=== PATIENT | male | born 1990 | race Caucasian/White ===

== ENCOUNTER 2018-11-04 16:21 | Inpatient (IN) ==
[2018-11-04] MEDS ORDERED: PHENERGAN INJ 25 MG IM PRN (17:23)
[2018-11-04] MEDS ORDERED: ATIVAN TAB 0.5 MG PO PRN (17:23)
[2018-11-04 17:48] LABS: BASOPHILS % (AUTO) 0.5 % (0.2-1.0); EOSINOPHILS # (AUTO) 0.1 x10^3/uL (0.0-0.2); EOSINOPHILS % (AUTO) 3.1 % (0.9-2.9); HEMATOCRIT 35.4 % (42.0-54.0); HEMOGLOBIN 12.4 g/dL (13.5-18.0); LYMPHOCYTES # (AUTO) 1.1 X10^3/uL (1.3-2.9); MEAN CORPUSCULAR HEMOGLOBIN 28.1 pg (27.0-34.0); MEAN CORPUSCULAR HGB CONC 34.9 g/dL (33.0-35.0); MEAN CORPUSCULAR VOLUME 80.6 fL (80.0-100.0); MEAN PLATELET VOLUME 9.1 fL (7.4-11.0); MONOCYTES # (AUTO) 0.6 x10^3/uL (0.3-0.8); MONOCYTES % (AUTO) 13.2 % (0.0-13.0); NEUTROPHILS # (AUTO) 2.3 x10^3/uL (2.2-4.8); NEUTROPHILS % (AUTO) 56.2 % (42.0-75.0); PLATELET COUNT 166 X10^3/uL (150.0-450.0); RED CELL DISTRIBUTION WIDTH 13.8 % (11.6-16.5); WHITE BLOOD COUNT 4.2 X10^3/uL (3.6-10.0)
[2018-11-04 18:01] LABS: ALANINE AMINOTRANSFERASE 37 Units/L (12-78); ALBUMIN 3.1 g/dL (3.4-5.0); ALKALINE PHOSPHATASE 61 Units/L (46-116); ASPARTATE AMINO TRANSFERASE 24 Units/L (15-37); BLOOD UREA NITROGEN 12 mg/dL (7-18); CALCIUM 8.3 mg/dL (8.5-10.1); CARBON DIOXIDE 26.5 mmol/L (21-32); CHLORIDE 99 mmol/L (98-107); CREATININE 1.18 mg/dL (0.70-1.30); SODIUM 134 mmol/L (136-145); eGFR NON BLACK RACES > 60 (>60)
[2018-11-04 18:31] LABS: ERYTHROCYTE SEDIMENTATION RATE 63 MM/HOUR (0-15)
[2018-11-04] MEDS: TYLENOL 325 MG TAB PO PRN (18:38)
[2018-11-04] MEDS: PEPCID 20 MG IV PREMIX* 20 MG/50 ML BAG IV SCH ×2 (18:39→21:31)
[2018-11-04] MEDS: PROTONIX INJ 40 MG VIAL IVP SCH ×2 (18:39→21:31)
[2018-11-04] MEDS: NS 1000 ML 1,000 ML IV SCH (18:39)
[2018-11-04] MEDS: FLAGYL IV PREMIX 500 MG BAG 500 MG/100 ML BAG IV SCH (18:39)
[2018-11-04 18:57] LABS: CRYPTOSPORIDIUM PARVUM ANTIGEN NEGATIVE (NEGATIVE); GIARDIA LAMBLIA ANTIGEN NEGATIVE (NEGATIVE)
[2018-11-04] MEDS: CIPRO IV 400 MG PREMIX* 400 MG/200 ML IV.SOLN. IV SCH ×3 (21:27→21:31)
[2018-11-04 21:40] LABS: BILIRUBIN,URINE NEGATIVE (NEGATIVE); BLOOD/HEMOGLOBIN,URINE 1+ (NEGATIVE); GLUCOSE, URINE NEGATIVE (NEGATIVE); KETONES,URINE 2+ (NEGATIVE); LEUKOCYTE ESTERASE ,URINE NEGATIVE (NEGATIVE); NITRITES,URINE NEGATIVE (NEGATIVE); PH,URINE 6.5 (5.0 - 8.0); PROTEIN,URINE 1+ (NEGATIVE); UROBILINOGEN,URINE NORMAL (NORMAL)
[2018-11-04 21:44] LABS: APPEARANCE,URINE CLEAR (CLEAR); BACTERIA,URINE NEGATIVE /HPF (NEGATIVE); COLOR,URINE YELLOW (YELLOW); RBC,URINE 0-2 /HPF (0-3); SQUAMOUS EPITHELIAL CELL,UR NEGATIVE /HPF (NEGATIVE)
[2018-11-04] MEDS: DEMEROL INJ IVP PRN (22:09)
[2018-11-05] MEDS: TYLENOL 325 MG TAB PO PRN ×4 (01:09→23:30)
[2018-11-05] MEDS: NS 1000 ML 1,000 ML IV SCH ×4 (02:16→18:22)
[2018-11-05] MEDS: FLAGYL IV PREMIX 500 MG BAG 500 MG/100 ML BAG IV SCH ×3 (02:26→18:22)
[2018-11-05] MEDS: DEMEROL INJ IVP PRN (04:30)
[2018-11-05 06:39] LABS: BASOPHILS % (AUTO) 0.7 % (0.2-1.0); EOSINOPHILS # (AUTO) 0.1 x10^3/uL (0.0-0.2); HEMATOCRIT 35.4 % (42.0-54.0); HEMOGLOBIN 12.1 g/dL (13.5-18.0); LYMPHOCYTES # (AUTO) 1.1 X10^3/uL (1.3-2.9); LYMPHOCYTES % (AUTO) 28.1 % (21.0-51.0); MEAN CORPUSCULAR HGB CONC 34.2 g/dL (33.0-35.0); MEAN CORPUSCULAR VOLUME 81.7 fL (80.0-100.0); MEAN PLATELET VOLUME 9.4 fL (7.4-11.0); MONOCYTES # (AUTO) 0.6 x10^3/uL (0.3-0.8); MONOCYTES % (AUTO) 15.1 % (0.0-13.0); NEUTROPHILS % (AUTO) 54.1 % (42.0-75.0); PLATELET COUNT 157 X10^3/uL (150.0-450.0); RED BLOOD COUNT 4.33 X10^6/uL (4.7-6.0); RED CELL DISTRIBUTION WIDTH 13.7 % (11.6-16.5); WHITE BLOOD COUNT 3.7 X10^3/uL (3.6-10.0)
[2018-11-05 06:51] LABS: ALANINE AMINOTRANSFERASE 33 Units/L (12-78); ALBUMIN 2.9 g/dL (3.4-5.0); ALKALINE PHOSPHATASE 58 Units/L (46-116); ASPARTATE AMINO TRANSFERASE 22 Units/L (15-37); BLOOD UREA NITROGEN 10 mg/dL (7-18); CALCIUM 8.3 mg/dL (8.5-10.1); CARBON DIOXIDE 24.8 mmol/L (21-32); CHLORIDE 102 mmol/L (98-107); COR CA(FOR HYPOALB) 9.2 mg/dL (8.5-10.1); CREATININE 1.17 mg/dL (0.70-1.30); SODIUM 139 mmol/L (136-145); TOTAL PROTEIN 6.6 g/dL (6.4-8.2); eGFR NON BLACK RACES > 60 (>60)
[2018-11-05 07:32] LABS: ERYTHROCYTE SEDIMENTATION RATE 36 MM/HOUR (0-15)
[2018-11-05 07:45] VITALS: BMI 24.7
[2018-11-05] MEDS: CIPRO IV 400 MG PREMIX* 400 MG/200 ML IV.SOLN. IV SCH ×2 (08:12→21:50)
[2018-11-05] MEDS: PROTONIX INJ 40 MG VIAL IVP SCH ×2 (08:12→21:48)
[2018-11-05] MEDS: PEPCID 20 MG IV PREMIX* 20 MG/50 ML BAG IV SCH ×2 (08:16→21:50)
[2018-11-05] MEDS ORDERED: POTASSIUM CHL 40 MEQ/NS 0.45% 500 ML IV PRN (10:34)
[2018-11-05] MEDS ORDERED: KLOR-CON PO PRN (10:34)
[2018-11-05] MEDS ORDERED: K-RIDER 10 MEQ/NS 100 ML 10 MEQ/100 ML BAG IV PRN (10:34)
[2018-11-05] MEDS ORDERED: POTASSIUM CHLORIDE LIQ 20 MEQ UDC PO PRN (10:34)
[2018-11-05] MEDS ORDERED: MICRO K EXTEN CAP 10 MEQ PO PRN (10:34)
[2018-11-05] MEDS ORDERED: K-DUR TAB 20 MEQ PO PRN (10:34)
[2018-11-05] MEDS ORDERED: POTASSIUM CHL 60 MEQ/NS 0.45% 500 ML IV PRN (10:34)
[2018-11-05] MEDS: MAGNESIUM SULFATE 1 GRAM/100 mL PREMIX 1 GM/100 ML BAG IV PRN ×2 (11:58→13:00)
--- NOTE | 2018-11-05 15:27 | DR.CONSULT ---
Consult - Consultation for Day of: Date: 11/05/18 - Chief Complaint Chief Complaint: Patient referred for abdominal pain and colitis. Patinet with complaints of Crampy lower abdominal pain, diarrhea and hematochezia. - History of Present Illness History of Present Illness: Patient is a 28 yo male who was referred for abdominal pain and colitis. Patient with complaints of Crampy lower abdominal pain, diarrhea for 4-5 days and hematochezia on sunday. Patient denies dysphagia, dyspepsia, nausea, vomiting, constipation and melena. Patient states he has never had a colon or EGD. Stool hemoccult positvie and stool positive ofr campylobacter. Hgb 12.1, Hct 35.4. Abdomen and pelvis CT showed question mild transmural thickening in the decending and igmoid colon which could be due to early infectious coliti or inflammatory colitis. - Family History Family Medical History: Diabetes Mellitus, Cancer, [place], Hypertension - Social History Does patient currently use any type of tobacco product: No Have you used tobacco products in the last 12 months: No Alcohol Use: Rarely Drug Use: None - Medications Home Medications: ceftriaxone [From Rocephin] Allergy (Severe, Verified 11/04/18 17:57) CONTINUE taking the following medications amoxicillin 500 mg PO BID 11/04/18 [History] fluoxetine [Prozac] 20 mg PO DAILY 11/04/18 [History] - Review of Systems Gastrointestinal: Abdominal Pain (lower abd cramps), Diarrhea, Hematochezia - Physical Exam Vital Signs: Temperature 98.9 F Pulse Rate [Left Brachial] 76 Respiratory Rate 18 Blood Pressure [Left Arm] 128/58 O2 Sat by Pulse Oximetry 98 Oriented: Normal Eyes: Normal Ear: Normal Nose: Normal Throat: Normal Respiratory: Clear Throughout Cardiovascular: Normal : Normal Auscultation: Bowel Sounds: Normal Palpation: Normal, Other (no distention). negative: Spleen Enlarged, Liver Enlarged, Mass Pulsatile Tenderness: Normal Skin: Normal Musculoskeletal: Normal Psychiatric: Normal Mood Description: Calm Affect: Normal Speech Pattern: Clear, Appropriate - Plan Plan: Assessment. 1. colitis likely secondary to campylobacter. Plan. 1. Low residue diet, cont antibiotics. Plan reviewed with Dr. Adams - Allergies Allergies/Adverse Reactions: Allergies Allergy/AdvReac Type Severity Reaction Status Date / Time ceftriaxone [From Rocephin] Allergy Severe Verified 11/04/18 17:57
[2018-11-05] MEDS: BENADRYL CAP/TAB 25 MG PO PRN (21:47)
[2018-11-06] MEDS: NS 1000 ML 1,000 ML IV SCH ×4 (02:43→17:32)
[2018-11-06] MEDS: FLAGYL IV PREMIX 500 MG BAG 500 MG/100 ML BAG IV SCH ×3 (02:43→19:30)
[2018-11-06] MEDS: BENADRYL CAP/TAB 25 MG PO PRN (04:13)
[2018-11-06 06:15] LABS: BASOPHILS % (AUTO) 0.5 % (0.2-1.0); EOSINOPHILS # (AUTO) 0.1 x10^3/uL (0.0-0.2); EOSINOPHILS % (AUTO) 3.4 % (0.9-2.9); HEMATOCRIT 34.7 % (42.0-54.0); HEMOGLOBIN 12.1 g/dL (13.5-18.0); LYMPHOCYTES # (AUTO) 1.1 X10^3/uL (1.3-2.9); LYMPHOCYTES % (AUTO) 30.3 % (21.0-51.0); MEAN CORPUSCULAR HEMOGLOBIN 28.1 pg (27.0-34.0); MEAN CORPUSCULAR HGB CONC 34.8 g/dL (33.0-35.0); MEAN CORPUSCULAR VOLUME 80.6 fL (80.0-100.0); MEAN PLATELET VOLUME 8.9 fL (7.4-11.0); MONOCYTES # (AUTO) 0.6 x10^3/uL (0.3-0.8); NEUTROPHILS # (AUTO) 1.8 x10^3/uL (2.2-4.8); NEUTROPHILS % (AUTO) 48.8 % (42.0-75.0); PLATELET COUNT 189 X10^3/uL (150.0-450.0); RED BLOOD COUNT 4.31 X10^6/uL (4.7-6.0); RED CELL DISTRIBUTION WIDTH 13.7 % (11.6-16.5); WHITE BLOOD COUNT 3.6 X10^3/uL (3.6-10.0)
[2018-11-06 06:51] LABS: ALANINE AMINOTRANSFERASE 49 Units/L (12-78); ALBUMIN 2.8 g/dL (3.4-5.0); ALKALINE PHOSPHATASE 78 Units/L (46-116); ASPARTATE AMINO TRANSFERASE 43 Units/L (15-37); BLOOD UREA NITROGEN 7 mg/dL (7-18); CARBON DIOXIDE 25.9 mmol/L (21-32); CHLORIDE 106 mmol/L (98-107); CREATININE 1.02 mg/dL (0.70-1.30); MAGNESIUM 2.2 mg/dL (1.7-2.9); SODIUM 141 mmol/L (136-145); TOTAL PROTEIN 6.6 g/dL (6.4-8.2); eGFR NON BLACK RACES > 60 (>60)
[2018-11-06] MEDS: TYLENOL 325 MG TAB PO PRN ×2 (09:35→20:15)
[2018-11-06] MEDS: PEPCID 20 MG IV PREMIX* 20 MG/50 ML BAG IV SCH ×2 (09:36→21:45)
[2018-11-06] MEDS: CIPRO IV 400 MG PREMIX* 400 MG/200 ML IV.SOLN. IV SCH ×2 (09:36→21:45)
[2018-11-06] MEDS: PROTONIX INJ 40 MG VIAL IVP SCH ×2 (09:37→21:46)
[2018-11-06] MEDS ORDERED: RESTORIL CAP 15 MG PO PRN (20:38)
--- NOTE | 2018-11-06 22:01 | DR.UPDATE ---
H&P Update History and Physical Update: History and Physical reviewed and patient examined. Changes noted: Yes with the following: WAS SEEN IN THE OFFICE FOR COMPLAINTS OF ABDOMINAL PAIN, NAUSEA, DIARRHEA, AND FEVER. AN OUTPATIENT ABDOMEN/PELVIS CT WAS OBTAINED AND REVEALED: QUESTIONABLE MILD TRANSMORAL THICKENING IN THE DESCENDING AND SIGMOID COLON WHICH COULD BE SPURIOUS AND DUE TO NONDISTENTION OR COULD BE RELATED TO EARLY INFECTION OR INFLAMMATORY COLITIS. HE WAS ADMITTED TO THE HOSPITAL FOR FURTHER EVALUATION AND TREATMENT. ON ADMISSION, WE WILL OBTAIN LABS AND STOOL STUDIES. WE WILL START IV FLAGYL, IV CIPRO, NORMAL SALINE AT 125ML/HR, PHENERGAN IM, DEMEROL IV PRN, PEPCID IV, AND PROTONIX IV. OTHERWISE, WE WILL FOLLOW UP WITH AM LABS AND CONTINUE TO MONITOR.
[2018-11-07] MEDS ORDERED: NS 100 ML IV 100 ML IV ONE (01:13)
[2018-11-07] MEDS: NS 1000 ML 1,000 ML IV SCH ×2 (01:52→09:52)
[2018-11-07] MEDS: FLAGYL IV PREMIX 500 MG BAG 500 MG/100 ML BAG IV SCH ×2 (03:11→10:48)
[2018-11-07 05:40] LABS: BASOPHILS % (AUTO) 0.5 % (0.2-1.0); EOSINOPHILS # (AUTO) 0.2 x10^3/uL (0.0-0.2); EOSINOPHILS % (AUTO) 4.6 % (0.9-2.9); HEMATOCRIT 35.5 % (42.0-54.0); HEMOGLOBIN 12.3 g/dL (13.5-18.0); LYMPHOCYTES # (AUTO) 1.4 X10^3/uL (1.3-2.9); LYMPHOCYTES % (AUTO) 28.5 % (21.0-51.0); MEAN CORPUSCULAR HEMOGLOBIN 27.9 pg (27.0-34.0); MEAN CORPUSCULAR HGB CONC 34.6 g/dL (33.0-35.0); MEAN CORPUSCULAR VOLUME 80.7 fL (80.0-100.0); MEAN PLATELET VOLUME 8.5 fL (7.4-11.0); MONOCYTES # (AUTO) 0.7 x10^3/uL (0.3-0.8); MONOCYTES % (AUTO) 14.3 % (0.0-13.0); NEUTROPHILS # (AUTO) 2.6 x10^3/uL (2.2-4.8); NEUTROPHILS % (AUTO) 52.1 % (42.0-75.0); PLATELET COUNT 219 X10^3/uL (150.0-450.0); RED BLOOD COUNT 4.39 X10^6/uL (4.7-6.0); RED CELL DISTRIBUTION WIDTH 13.7 % (11.6-16.5); WHITE BLOOD COUNT 5.1 X10^3/uL (3.6-10.0)
[2018-11-07 05:46] LABS: ALANINE AMINOTRANSFERASE 88 Units/L (12-78); ALKALINE PHOSPHATASE 85 Units/L (46-116); ASPARTATE AMINO TRANSFERASE 82 Units/L (15-37); BLOOD UREA NITROGEN 7 mg/dL (7-18); CALCIUM 8.1 mg/dL (8.5-10.1); CARBON DIOXIDE 25.5 mmol/L (21-32); CHLORIDE 105 mmol/L (98-107); COR CA(FOR HYPOALB) 8.9 mg/dL (8.5-10.1); COR NA(FOR HYPERGLY) 139 mmol/L (136-145); CREATININE 0.99 mg/dL (0.70-1.30); SODIUM 139 mmol/L (136-145); TOTAL PROTEIN 6.9 g/dL (6.4-8.2); eGFR NON BLACK RACES > 60 (>60)
--- NOTE | 2018-11-07 07:14 | CT ---
HISTORY: Abdominal pain Study: CT abdomen pelvis with contrast Comparison: None Technique: Axial post-contrast images with coronal and sagittal reformats. Dose reduction procedures were used with mA/kv adjusted for body size. Findings: The lung bases are clear. The liver, spleen, adrenal glands, and pancreas are within normal limits. No opaque stones are visible within the gallbladder. The kidneys are unobstructed and without stones or masses. No ureteral calculi are identified. The abdominal aorta is normal. No intraperitoneal or retroperitoneal lymphadenopathy of significance is identified. The appendix is normal. There are no findings suggestive of enteritis, colitis, or diverticulitis. Examination of the pelvis demonstrated no evidence for pelvic masses, pelvic fluid, or pelvic lymphadenopathy. No bladder abnormality is identified. No lytic or blastic skeletal lesions of significance are identified. There is minimal anterolisthesis L5 on S1 secondary to bilateral spondylolysis at L5. IMPRESSION: No acute intra-abdominal or intrapelvic abnormality identified. Minimal anterolisthesis L5 on S1 secondary to bilateral spondylolysis at L5 Reported By:
[2018-11-07] MEDS: CIPRO IV 400 MG PREMIX* 400 MG/200 ML IV.SOLN. IV SCH (08:11)
[2018-11-07] MEDS: PEPCID 20 MG IV PREMIX* 20 MG/50 ML BAG IV SCH (08:12)
[2018-11-07] MEDS: TYLENOL 325 MG TAB PO PRN (08:12)
[2018-11-07] MEDS: PROTONIX INJ 40 MG VIAL IVP SCH (08:12)
[2018-11-07 09:54] VITALS: BP 129/84
== END 2018-11-07 11:50 | disposition home or self-care (01) | DRG 372 ==
LOC: MED/SURG 16:49
PROVIDERS: ADMIT Internal Medicine; ATTEND Internal Medicine
DX: A04.5 Campylobacter enteritis; K92.1 Melena; K52.89 Other specified noninfective gastroenteritis and colitis
CPT/HCPCS: 36415; 74177; 80053; 81001; 82270; 83630; 83735; 85025; 85652; 86140; 87045; 87328; 87329; 87427; 87449; 87493; 87899; A4216; A4222; C9113; S0028; S0030; J0744; J2175; J3475; J3490; J7030; J7050